=== PATIENT | male | born 1985 | race Caucasian/White ===

== ENCOUNTER 2025-09-23 10:04 | Emergency (ER) | payer OTHER, SELFPAY ==
[2025-09-23 10:05] VITALS: BP 130/102; PULSE 100; RESP 18; TEMP 36.5; O2SAT 99; BMI 29.7
--- NOTE | 2025-09-23 10:20 | EX.ED.VIS.PS ---
HPI HPI - Psych History of Present Illness Chief Complaint: Mental Health Narrative Narrative: Chief complaint and HPI: 39-year-old male with depression/anxiety recently started on Zoloft 25 mg presents for evaluation of anxiety and feelings of being overwhelmed. Patient states he recently started seeing a counselor and psychiatrist. States he has an appointment with his counselor later today. Patient states today while working he began feeling emotionally overwhelmed which is what brought him to the emergency department. States he has been having these feelings for the past several days. He denies any suicidal or homicidal ideation. Denies any visual or auditory hallucinations. Not paranoid. Denies any tobacco or illicit drug use. Review of systems: See HPI Medications: As listed on the chart Allergies: As listed on the chart PFSH: Per chart Vital signs: As listed on the chart. Reviewed. Physical exam: Gen: A&O x3, NAD but mildly anxious Head: Normocephalic, atraumatic Eyes: No sclera icterus, conjunctiva clear, PERRL ENT: Moist mucous membranes CV: RRR, no murmurs, no peripheral edema Resp: Lungs CTA BL, no w/r/c Musc: Moves all extremities Psych: Cooperative, mildly anxious, good insight, not paranoid PFSH PFSH Home Medications ?Medication ?Instructions ?Recorded ?Last Taken ?Type sertraline 25 mg tablet 25 mg PO Q24H 09/23/25 09/23/25 History Allergy/AdvReac Type Severity Reaction Status Date / Time No Known Allergies Allergy Verified 09/23/25 10:07 Social History Smoking Status: Never smoker EXAM Physical Exam Const Vital Signs: 09/23/25 10:05 Temperature 97.7 F L Temperature Source Oral Pulse Rate 100 Respiratory Rate 18 Blood Pressure 130/102 H Blood Pressure Mean 111 Pulse Ox 99 Oxygen Delivery Method Room Air MDM MDM MDM Narrative Medical decision making narrative: 39-year-old male with depression/anxiety recently started on Zoloft 25 mg presents for evaluation of anxiety and feelings of being overwhelmed. Patient states he recently started seeing a counselor and psychiatrist. States he has an appointment with his counselor later today. Patient states today while working he began feeling emotionally overwhelmed which is what brought him to the emergency department. He denies any suicidal or homicidal ideation. Denies any visual or auditory hallucinations. Not paranoid. On presentation, patient no acute distress but mildly anxious. Given physical exam, I do not think patient needs any inpatient psychiatric facility or pink slip. I do not think any laboratory workup is needed. I did offer voluntary inpatient psychiatric placement but he declined. P.o. Ativan ordered as patient has a ride home to help with his symptoms. Social work consulted to help with outpatient resources. Patient was evaluated by socially responsible investment adviser. Agrees with discharge home. Follow-up with counselor and psychiatrist. Continue home medication. Was given outpatient resources. Return back to ED symptoms change or worsen. He confirmed understand the plan. Patient will discharge home. Impression: 1. Anxiety 2. Depression 3. History of both Discharge Plan Triage Chief Complaint: Mental Health ED Provider: Deng Jauregui Dx/Rx/DC Orders Prescriptions: No Action sertraline 25 mg tablet 25 mg PO Q24H Primary Care Provider: Care Physician,No Primary Referrals: Care Physician,No Primary [Primary Care Provider, Medical] Print Language: Guinean
--- NOTE | 2025-09-23 12:05 | CM.ED ---
[facility] Work SW met with patient who stated he came to the ED today due to feelings of overwhelming anxiety. Patient states over the last 3 months, he has started feeling more depressed and hopeless. Patient states he has not had any triggering events but feels that his anxiety and depression are a result of not dealing with emotions over the years and simply going on with life instead of processing events. Patient reports that today, he felt well going into work but a minor stressful event at work triggered his anxiety to increase. Patient states that he has been having trouble sleeping, that his appetite has decreased and he has lost 12 pounds, that he is having a hard time experiencing melissa and is feeling more hopeless. Patient states he has recently connected with a counselor and a psychiatrist and started on Zoloft. Patient denies suicidal ideations and reports to feeling safe. Patient was given resources for [facility] IOP should he feel that he needs additional support at a later date in addition to his counseling and medication. As patient recently starting counseling, psychiatry adn medications, IOP was not recommended at this time due to patient actively participating in appropriate treatment and feeling safe with current plan. Patient was encouraged to return the to ED should his symptoms increase or patient feels unsafe. Patient in agreement with same. Jacquie Palomo, GOAT HERDER, SALES PROJECT COORDINATOR
[2025-09-23 12:14] VITALS: BP 139/104; PULSE 86; RESP 16; TEMP 37; O2SAT 99
--- OUTSIDE RECORDS SUMMARY | 2025-09-23 12:54 | XMS RPT_ITS | CCD ---
Author Organization [facility] Care Team Providers Care Museum Educator Name Role Phone PHYSICIAN, NONE Primary Care Unavailable MUNDO VAN Attending Unavailable [facility] Referring Shantal Norwood CNP, Bebe Urban Unavailable Dr. Jourdan Mae Unavailable Mundo Mcdaniels Attending Provider Mundo Mcdaniels Attending Unavailable Problems Active Problems Problem Classification Problem Date Documented Da te Episodic/Chronic Other non-traumatic joint disorders (4 sources) Ankle pain; Translations: [Ankle pain, right] 04-03-2021 Episodic Other nutritional; endocrine; and metabolic disorders (4 sources) Body mass index 25-29 - overweight; Translations: [BMI 27.0-27.9,adult] 04-03-2021 Episodic Residual codes; unclassified (4 sources) Non-smoker; Translations: [Nonsmoker] 04-03-2021 Episodic Past or Other Problems Problem Classification Problem Date Documented Da te Episodic/Chronic Unclassified (4 sources) Unclassified (4 sources) BMI 27.0-27.9,adult Unclassified (4 sources) Nonsmoker Unclassified (4 sources) Ankle pain, right Results Test Name Value Interpretation Reference Range Facil ity Office Visit Reporton 2024 Office Visit Report [facility] [address] [place] [address] OFFICE VISIT Date of Service: 04/09/25 MR#: [id number] Acct: [id number] Patient: CHALINO VAN Rep #: [id number] : 1985 Provider: ROBERT Patterson Age/Sex: 39/M Location: [facility] Status: Signed Intake 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 Procedures Now Clinic Billing Sheet Testing [facility] Non-DOT (yearly plus drug testing fee): Yes 04/17/25 0745 Date Mundo Dill Signature: Date (if applicable) CC: Normal [facility] .Auto Diffon 11-24-2018 Ammonia mass conc (P) 0.40 10 3/mcL Normal 0.09-1.40 [facility] ([place]) Comment on above: Performed By: #### C BC, ADIFF, ANEU, LIP, CMP, GFR #### [address] [address] Basophils #/vol (Bld) 0.00 10 3/mcL Normal 0.00-0.27 [facility] ([place]) Comment on above: Performed By: #### C BC, ADIFF, ANEU, LIP, CMP, GFR #### [address] [address] Basophils/100 WBC (Bld) 0.2 % Normal 0.0-2.5 [facility] ([place]) Comment on above: Performed By: #### C BC, ADIFF, ANEU, LIP, CMP, GFR #### [address] [address] Eosinophils #/vol (Bld) 0.00 10 3/mcL Normal 0.00-0.65 [facility] ([place]) Comment on above: Performed By: #### C BC, ADIFF, ANEU, LIP, CMP, GFR #### [address] [address] Eosinophils/100 WBC (Bld) 0.1 % Normal 0.0-6.0 [facility] ([place]) Comment on above: Performed By: #### C BC, ADIFF, ANEU, LIP, CMP, GFR #### [address] [address] Lymphocytes #/vol (Bld) 0.20 10 3/mcL Low 0.90-4.32 [facility] ([place]) Comment on above: Performed By: #### C BC, ADIFF, ANEU, LIP, CMP, GFR #### [address] [address] Lymphocytes/100 WBC (Bld) 1.7 % Low 20.0-40.0 [facility] ([place]) Comment on above: Performed By: #### C BC, ADIFF, ANEU, LIP, CMP, GFR #### [address] [address] Monocytes/100 WBC (Bld) 3.5 % Normal 2.0-13.0 [facility] ([place] Comment on above: Performed By: #### C BC, ADIFF, ANEU, LIP, CMP, GFR #### [address] [address] Neutrophils/100 WBC (Bld) 94.5 % High 50.0-75.0 [facility] ([place] Comment on above: Performed By: #### C BC, ADIFF, ANEU, LIP, CMP, GFR #### [address] [address] .GFRon 11-24-2018 GFR >60 Normal [facility] ([place]) Comment on above: Result Comment: GFR Population mean for , Non- Americans Ages 20-29 = 116 mL/min/1.73 sq.m. Ages 30-39 = 107 mL/min/1.73 sq.m. Ages 40-49 = 99 mL/min/1.73 sq.m. Ages 50-59 = 93 mL/min/1.73 sq.m. Ages 60-69 = 85 mL/min/1.73 sq.m. Ages 70+ = 75 mL/min/1.73 sq.m. Chronic Kidney Disease: Less than 60 mL/min/1.73 square meters End Stage Renal Disease: Less than 15 mL/min/1.73 square meters Performed By: #### C BC, ADIFF, ANEU, LIP, CMP, GFR #### [place] [id number] GFR Non- >60 Normal [facility] ([place]) Comment on above: Result Comment: GFR Population mean for , Non- Americans Ages 20-29 = 116 mL/min/1.73 sq.m. Ages 30-39 = 107 mL/min/1.73 sq.m. Ages 40-49 = 99 mL/min/1.73 sq.m. Ages 50-59 = 93 mL/min/1.73 sq.m. Ages 60-69 = 85 mL/min/1.73 sq.m. Ages 70+ = 75 mL/min/1.73 sq.m. Chronic Kidney Disease: Less than 60 mL/min/1.73 square meters End Stage Renal Disease: Less than 15 mL/min/1.73 square meters Performed By: #### C BC, ADIFF, ANEU, LIP, CMP, GFR #### [place] [address] .NEUABSon 11-24-2018 Neutrophils #/vol (Bld) 11.90 10 3/mcL High 2.25-8.10 [facility] ([place]) Comment on above: Performed By: #### C BC, ADIFF, ANEU, LIP, CMP, GFR #### [place] [address] CBCon 11-24-2018 Erythrocyte distribution width Ratio (RBC) 12.6 % Normal 11.5-15.5 [facility] ([place] Comment on above: Performed By: #### C BC, ADIFF, ANEU, LIP, CMP, GFR #### [place] [address] Hematocrit Volume Fraction (Bld) 46.7 % Normal 40.0-52.0 [facility] ([place]) Comment on above: Performed By: #### C BC, ADIFF, ANEU, LIP, CMP, GFR #### [place] [address] Hemoglobin mass conc (Bld) 16.2 G/dL Normal 13.0-17.5 [facility] ([place] Comment on above: Performed By: #### C BC, ADIFF, ANEU, LIP, CMP, GFR #### [place] [address] MCH Entitic mass (RBC) 30.9 pg Normal 27.0-33.0 [facility] ([place] Comment on above: Performed By: #### C BC, ADIFF, ANEU, LIP, CMP, GFR #### [place] [address] MCHC mass conc (RBC) 34.7 G/dL Normal 32.0-36.0 [facility] ([place] Comment on above: Performed By: #### C BC, ADIFF, ANEU, LIP, CMP, GFR #### [place] [address] MCV Entitic volume (RBC) 89.0 fL Normal 81.0-100.0 [facility] ([place] Comment on above: Performed By: #### C BC, ADIFF, ANEU, LIP, CMP, GFR #### [place] [address] Platelet mean volume Entitic volume (Bld) 8.7 fL Normal 6.4-10.5 [facility] ([place] Comment on above: Performed By: #### C BC, ADIFF, ANEU, LIP, CMP, GFR #### [place] [address] Platelets #/vol (Bld) 206 10 3/mcL Normal 150-450 [facility] ([place]) Comment on above: Performed By: #### C BC, ADIFF, ANEU, LIP, CMP, GFR #### [place] [address] RBC #/vol (Bld) 5.25 10 6/mcL Normal 4.50-6.00 [facility] ([place]) Comment on above: Performed By: #### C BC, ADIFF, ANEU, LIP, CMP, GFR #### [place] [address] WBC #/vol (Bld) 12.60 10 3/mcL High 4.50-10.80 [facility] ([place]) Comment on above: Performed By: #### C BC, ADIFF, ANEU, LIP, CMP, GFR #### [address] [address] CMPon 11-24-2018 Albumin/Globulin mass ratio 1.2 {ratio} Normal 0.9-1.6 [facility] ([place] Comment on above: Performed By: #### C BC, ADIFF, ANEU, LIP, CMP, GFR #### [place] [id number] ALP enzyme act/vol 48 U/L Normal 38-126 [facility] ([place] Comment on above: Performed By: #### C BC, ADIFF, ANEU, LIP, CMP, GFR #### [place] [id number] Bili Total 1.4 mg/dL High 0.2-1.2 [facility] ([place] Comment on above: Performed By: #### C BC, ADIFF, ANEU, LIP, CMP, GFR #### [place] [address] Creatinine mass conc 1.07 mg/dL Normal 0.60-1.40 [facility] ([place] Comment on above: Performed By: #### C BC, ADIFF, ANEU, LIP, CMP, GFR #### [place] [address] Globulin mass conc (S) 3.3 G/dL Normal 1.5-3.8 [facility] ([place] Comment on above: Performed By: #### C BC, ADIFF, ANEU, LIP, CMP, GFR #### [place] [address] Protein mass conc 7.4 G/dL Normal 6.0-8.5 [facility] ([place] Comment on above: Performed By: #### C BC, ADIFF, ANEU, LIP, CMP, GFR #### [place] [address] Urea nitrogen/Creatinine mass ratio 18.7 ratio Normal 10.0-22.0 [facility] ([place] Comment on above: Performed By: #### C BC, ADIFF, ANEU, LIP, CMP, GFR #### [address] [address] Albumin mass conc 4.1 G/dL Normal 3.2-4.8 [facility] ([place] Comment on above: Performed By: #### C BC, ADIFF, ANEU, LIP, CMP, GFR #### [address] [address] ALT enzyme act/vol 27 U/L Normal 12-55 [facility] [place] Comment on above: Performed By: #### C BC, ADIFF, ANEU, LIP, CMP, GFR #### [place] [address] AST enzyme act/vol 18 U/L Normal 8-34 [facility] [place] Comment on above: Performed By: #### C BC, ADIFF, ANEU, LIP, CMP, GFR #### [place] [address] Calcium mass conc 8.6 mg/dL Normal 8.4-10.1 [facility] ([place] Comment on above: Performed By: #### C BC, ADIFF, ANEU, LIP, CMP, GFR #### [place] [address] Chloride molar conc 103 mmol/L Normal 98-110 [facility] ([place]) Comment on above: Performed By: #### C BC, ADIFF, ANEU, LIP, CMP, GFR #### [place] [address] CO2 molar conc 29 mmol/L Normal 22-32 [facility] ([place] Comment on above: Performed By: #### C BC, ADIFF, ANEU, LIP, CMP, GFR #### [place] [address] Electrolyte Balance 7.0 mEq/L Normal 4.0-15.0 [facility] ([place]) Comment on above: Performed By: #### C BC, ADIFF, ANEU, LIP, CMP, GFR #### [place] [id number] Glucose mass conc 125 mg/dL High 70-110 [facility] ([place] Comment on above: Performed By: #### C BC, ADIFF, ANEU, LIP, CMP, GFR #### [address] [address] Potassium molar conc 3.9 mmol/L Normal 3.5-5.0 [facility] ([place] Comment on above: Performed By: #### C BC, ADIFF, ANEU, LIP, CMP, GFR #### [address] [address] Sodium molar conc 139 mmol/L Normal 136-145 [facility] ([place] Comment on above: Performed By: #### C BC, ADIFF, ANEU, LIP, CMP, GFR #### [place] [address] Urea nitrogen mass conc 20.0 mg/dL Normal 8.0-22.0 [facility] ([place] Comment on above: Performed By: #### C BC, ADIFF, ANEU, LIP, CMP, GFR #### [place] [address] LIPon 11-24-2018 Lipase Level 55 U/L Low 73-393 [facility] ([place]) Comment on above: Performed By: #### C BC, ADIFF, ANEU, LIP, CMP, GFR #### [address] [address] Vital Signs Date Time Vital Sign Value Performing Clinician Facility 04-03-2021 07:37-0400 Body height 187.96 cm Aston Van [facility]; [facility] Work Phone: 04-03-2021 07:37-0400 Body mass index (BMI) [Ratio] 27.22 kg/m2 Aston Van [facility]; [facility] Work Phone: 04-03-2021 07:37-0400 Body surface area Derived from formula 2.23 m2 Aston Van [facility]; [facility] Work Phone: 04-03-2021 07:37-0400 Body temperature 97.3 [degF] Aston Van [facility]; [facility] Work Phone: Comment on above: Method: Infrared 04-03-2021 07:37-0400 Body weight 96.16 kg Aston Van L[facility]; [facility] Work Phone: 04-03-2021 07:37-0400 Diastolic blood pressure 82 mm[Hg] Aston Van LPN [facility]; [facility] Work Phone: Comment on above: Patient Position: Sitting; Cuff Location : Left Arm; Cuff Size: Standard 04-03-2021 07:37-0400 Heart rate 90 /min Aston Van L[facility]; [facility] Work Phone: Comment on above: Pattern: Regular 04-03-2021 07:37-0400 Respiratory rate 16 /min Aston Van L[facility]; [facility] Work Phone: Comment on above: Pattern: Unlabored 04-03-2021 07:37-0400 SaO2% (BldA) [Mass fraction] 97 % Aston Van L[facility]; [facility] Work Phone: Comment on above: Room air 04-03-2021 07:37-0400 Systolic blood pressure 132 mm[Hg] Aston Van LPN [facility]; [facility] Work Phone: Comment on above: Patient Position: Sitting; Cuff Location : Left Arm; Cuff Size: Standard Encounters Encounter Date Encounter Type Care Provider Facility Start: 04-09-2025 End: 04-09-2025 Patient encounter procedure Mundo JONES [facility] Work Phone: Start: 04-09-2025 End: 04-09-2025 ambulatory Mundo JONES [facility] Work Phone: Start: 04-03-2021 End: 04-03-2021 Office consultation new/estab patient 15 min Bebe Norwood CNP Work Phone: [facility] Start: 11-24-2018 End: 11-24-2018 Emergency department patient visit NONE PHYSICIAN Facility:A Plan of Treatment Date Care Activity Detail Author Start: 04-03-2021 Procedure Education Eprescribed prescriptions (G8553) [facility]; [facility] Work Phone: Payers Date Payer Category Payer Self-pay 1985 Unknown [id number] Unknown [id number] Social History Date Type Detail [facility] Work Phone: Start: 1985 Sex Assigned At Male [facility] Evaluation note Note Date & Type Note Facility Evaluation note No assessment information availa ble [facility] Work Phone: Instructions Note Date & Type Note Facility Instructions Name Patient Instructions Indication:Nonsmoker Start: Instruction Type:Provider Instructions for Treatment How to Access Health Information Online using Patient Portal and 3rd [employer] Apps Indication:Nonsmoker Start: Instruction Type:Patient Education [facility]; [facility] Work Phone: Instructions Note Date & Type Note Facility Instructions Name Patient Instructions Indication:Nonsmoker Start: Instruction Type:Provider Instructions for Treatment How to Access Health Information Online using Patient Portal and 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 11: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 Additional Source Comments (unrecognized sect ion and content) No Status Records FoundNo Status Records Found INFORMATION SOURCE (unrecogn ized section and content) DATE CREATED AUTHOR 12/12/2018 [facility] ([place]) DATE CREATED AUTHOR AUTHOR'S ORGANIZ ATION [facility]20[facility] Care Teams (unrecognized sec tion and content) Team Status: Inactive Member Role Status Dates Mundo JONES, PA Attending Provider Active Start: April 09, 2025 End: April 09, 2025 Goals (unrecognized section and content) Goals may be documented in a n alternate section FOR RECORDS PERTAINING TO PATIENTS WHO ARE OR HAVE BEEN ENROLLED IN A CHEMICAL DEPENDENCY/SUBSTANCEABUSE PROGRAM, SOME INFORMATION MAY BE OMITTED. This clinical summary was aggregated from multiple sources. Caution should be exercised in using it in the provision of clinical care. This summary normalizes information from multiple sources, and as a consequence, information in this document may materially change the coding, format and clinical context of patient data. In addition, data may be omitted in some cases. CLINICAL DECISIONS SHOULD BE BASED ON THE PRIMARY CLINICAL RECORDS. [facility] [employer] provides no warranty or guarantee of the accuracy or completeness of information in this document.
== END 2025-09-23 12:18 | disposition home or self-care (01) ==
PROVIDERS: Emergency Provider Surgery; Visit Provider Surgery
DX: F41.9 Anxiety disorder, unspecified (principal); F32.A Depression, unspecified; Z79.899 Other long term (current) drug therapy
CPT/HCPCS: 99282